=== PATIENT | male | born 1950 | race Two or more races ===

== ENCOUNTER 2023-06-22 09:52 | Inpatient (IN) | payer OTHER ==
[~2023-06-22] VITALS: Ht 177.8 cm; Wt 105.7 kg
[2023-06-22] VITALS (7 sets, daily range): BP systolic 121; BP diastolic 65; PULSE 76–98; RESP 14–23; O2SAT 92–100
[2023-06-22] MEDS ORDERED: cefTRIAXone 1GM/50ML D5W 50 ML IV ONE (11:30)
[2023-06-22] MEDS ORDERED: IPRATROPIUM BROM 0.5 MG/2.5ML INH SOL NEB ONE (11:30)
[2023-06-22] MEDS ORDERED: ALBUTEROL SULF 2.5 MG/0.5ML(0.5%) NEB SOLN NEB ONE (11:30)
[2023-06-22] MEDS ORDERED: AZITHROMYCIN 500MG/ 250ML 250 ML IV ONE (11:30)
[2023-06-22] MEDS ORDERED: methylPREDNISolone SOD SUCC 40 MG/ML VL IV ONE (11:30)
[2023-06-22 12:16] LABS: Alanine Aminotransferase 17 U/L (7-40); Albumin 4.1 g/dL (3.2-4.8); Alkaline Phosphatase 89 U/L (46-116); Anion Gap 7 (5-15); Aspartate Aminotransferase 18 U/L (13-40); BUN/Creatinine Ratio 14.4 (10.0-20.0); Blood Urea Nitrogen 16 mg/dL (9-23); Calcium 8.7 mg/dL (8.5-10.1); Carbon Dioxide 26 mmol/L (20-30); Chloride 100 mmol/L (98-107); Glucose 124 mg/dL (74-106); Potassium 3.7 mmol/L (3.5-5.1); Sodium 133 mmol/L (136-145)
[2023-06-22 12:17] LABS: Bilirubin, Total 1.1 mg/dL (0.2-1.0)
[2023-06-22 12:22] LABS: Basophils # (auto) 0 10 ^3/uL (0-0.2); Basophils % (auto) 0.2 % (0.0-2.0); Eosinophils # (auto) 0 10 ^3/uL (0-0.8); Hemoglobin 13.5 g/dL (13.5-17.5); Mean Corpuscular Hemoglobin 32.7 pg (28.0-32.0); Mean Corpuscular Hgb Conc. 34.8 g/dL (32.0-36.0); Mean Corpuscular Volume 94.2 fL (80.0-100.0); Monocytes # (auto) 1.3 10 ^3/uL (0-1.3); Monocytes % (auto) 9.5 % (0.0-12.0); Neutrophils # (auto) 11.5 10 ^3/uL (1.6-8.6); Neutrophils % (auto) 83.3 % (37.0-80.0); Nucleated Red Blood Cells % 0.1 %; Red Blood Cells 4.14 10^6/uL (4.5-5.90); Red Cell Distribution Width 12.7 % (11.8-14.3); White Blood Cell 13.8 10^3/uL (4.4-10.8)
[2023-06-22] MEDS ORDERED: ACETAMINOPHEN 500 MG TAB PO ONE (14:15)
[2023-06-22] MEDS ORDERED: MORPHINE SULFATE INJ 2 MG/ml SYRG IV PRN (14:45)
[2023-06-22] MEDS ORDERED: ONDANSETRON HCL 4 MG/2 ML VIAL IV PRN (14:45)
[2023-06-22] MEDS ORDERED: DOCUSATE SOD 100 MG CAP PO PRN (14:45)
[2023-06-22] MEDS ORDERED: TEMAZEPAM 15 MG CAP PO PRN (14:45)
[2023-06-22 15:31] LABS: Base Excess -0.8 mmol/L (-2.0-2.0)
[2023-06-22] MEDS: SODIUM CHLORIDE 0.9% 1,000 ML IV SCH (16:50)
[2023-06-22] MEDS: ALBUTEROL SULF 2.5 MG/0.5ML(0.5%) NEB SOLN NEB SCH ×2 (18:49→22:47)
[2023-06-22] MEDS: IPRATROPIUM BROM 0.5 MG/2.5ML INH SOL NEB SCH ×2 (18:49→22:47)
[2023-06-22] MEDS: methylPREDNISolone SOD SUCC 40 MG/ML VL IV SCH (23:16)
[2023-06-23] VITALS (18 sets, daily range): BP systolic 109–139; BP diastolic 59–75; PULSE 79–110; RESP 16–20; TEMP 97.4–98.4; O2SAT 91–98
[2023-06-23 00:40] LABS: Urine Bacteria NONE SEEN /hpf (None Seen); Urine Blood 1+ /uL (Negative); Urine Clarity Clear (Clear); Urine Color Yellow (Yellow); Urine Protein, UAD 1+ (Negative); Urine Specific Gravity 1.024 (1.001-1.035); Urine Urobilinogen Normal (Negative); Urine WBC 1 /hpf (0 - 3)
[2023-06-23] MEDS: SODIUM CHLORIDE 0.9% 1,000 ML IV SCH ×2 (00:45→10:58)
[2023-06-23 01:01] LABS: COVID19 ANTIGEN SOFIA FIA NEGATIVE (NEGATIVE); Rapid Influenza A Negative (Negative); Rapid Influenza B Negative (Negative)
[2023-06-23] MEDS ORDERED: LOSA100T58 PO (02:30)
[2023-06-23] MEDS ORDERED: PRIM250T29 PO (02:34)
[2023-06-23] MEDS ORDERED: GABA-1308 PO (02:34)
[2023-06-23] MEDS ORDERED: FINA5TAB4 PO (02:34)
[2023-06-23] MEDS ORDERED: ATOR40TA52 PO (02:34)
[2023-06-23] MEDS: IPRATROPIUM BROM 0.5 MG/2.5ML INH SOL NEB SCH ×6 (02:54→21:47)
[2023-06-23] MEDS: ALBUTEROL SULF 2.5 MG/0.5ML(0.5%) NEB SOLN NEB SCH ×6 (02:54→21:47)
[2023-06-23] MEDS: methylPREDNISolone SOD SUCC 40 MG/ML VL IV SCH ×2 (05:48→22:00)
[2023-06-23 07:11] LABS: Basophils # (auto) 0 10 ^3/uL (0-0.2); Basophils % (auto) 0.1 % (0.0-2.0); Eosinophils # (auto) 0 10 ^3/uL (0-0.8); Hematocrit 37.5 % (41.0-53.0); Hemoglobin 12.9 g/dL (13.5-17.5); Lymphocytes # (auto) 0.7 10 ^3/uL (0.4-5.4); Lymphocytes % (auto) 4.9 % (10.0-50.0); Mean Corpuscular Hemoglobin 33.2 pg (28.0-32.0); Mean Corpuscular Hgb Conc. 34.5 g/dL (32.0-36.0); Mean Corpuscular Volume 96.1 fL (80.0-100.0); Monocytes # (auto) 0.6 10 ^3/uL (0-1.3); Monocytes % (auto) 4.2 % (0.0-12.0); Neutrophils # (auto) 12.1 10 ^3/uL (1.6-8.6); Neutrophils % (auto) 90.8 % (37.0-80.0); Red Cell Distribution Width 12.8 % (11.8-14.3); White Blood Cell 13.3 10^3/uL (4.4-10.8)
[2023-06-23 07:35] LABS: Alanine Aminotransferase 15 U/L (7-40); Alkaline Phosphatase 98 U/L (46-116); Anion Gap 10 (5-15); Aspartate Aminotransferase 24 U/L (13-40); BUN/Creatinine Ratio 20.5 (10.0-20.0); Bilirubin, Total 0.5 mg/dL (0.2-1.0); Blood Urea Nitrogen 17 mg/dL (9-23); Calcium 8.4 mg/dL (8.7-10.4); Carbon Dioxide 21 mmol/L (20-30); Chloride 104 mmol/L (98-107); Glucose 166 mg/dL (74-106); Potassium 3.8 mmol/L (3.5-5.1); Sodium 135 mmol/L (136-145); Total Protein 6.9 g/dL (5.7-8.2)
[2023-06-23] MEDS: cefTRIAXone 1GM/50ML D5W 50 ML IV SCH (09:50)
[2023-06-23] MEDS ORDERED: PANTOPRAZOLE 40 MG/10 ML VIAL INJ IV SCH (10:00)
[2023-06-23] MEDS: AZITHROMYCIN 500MG/ 250ML 250 ML IV SCH (10:56)
[2023-06-23 11:50] LABS: INR 1.04 (0.9-1.15); Prothrombin Time 10.9 sec (9.3-11.8)
[2023-06-23] MEDS ORDERED: PROPRANOLOL HCL 20 MG TAB PO ONE (18:15)
[2023-06-23] MEDS ORDERED: LOSARTAN POTASSIUM 50 MG TAB PO ONE (18:15)
[2023-06-23] MEDS ORDERED: PRIMIDONE 50 MG TAB PO ONE (18:15)
[2023-06-23] MEDS ORDERED: FINASTERIDE 5 MG TAB PO ONE (18:15)
[2023-06-23 19:30] LABS: Free T3 2.12 pg/mL (2.3-4.2); Free T4 (Free Thyroxine) 0.99 ng/dL (0.89-1.76)
[2023-06-23] MEDS: ATORVASTATIN 20 MG TAB PO SCH (22:00)
[2023-06-24] VITALS (17 sets, daily range): BP systolic 122–138; BP diastolic 63–78; PULSE 67–101; RESP 16–20; TEMP 97.6–98.4; O2SAT 91–100
[2023-06-24] MEDS: ALBUTEROL SULF 2.5 MG/0.5ML(0.5%) NEB SOLN NEB SCH ×6 (02:09→22:15)
[2023-06-24] MEDS: IPRATROPIUM BROM 0.5 MG/2.5ML INH SOL NEB SCH ×6 (02:09→22:15)
[2023-06-24 05:39] LABS: Basophils # (auto) 0 10 ^3/uL (0-0.2); Eosinophils # (auto) 0 10 ^3/uL (0-0.8); Hematocrit 35.4 % (41.0-53.0); Lymphocytes # (auto) 0.6 10 ^3/uL (0.4-5.4); Lymphocytes % (auto) 4.7 % (10.0-50.0); Mean Corpuscular Hgb Conc. 33.8 g/dL (32.0-36.0); Mean Corpuscular Volume 94.7 fL (80.0-100.0); Neutrophils # (auto) 12.3 10 ^3/uL (1.6-8.6); Neutrophils % (auto) 88.3 % (37.0-80.0); Red Blood Cells 3.74 10^6/uL (4.5-5.90); Red Cell Distribution Width 13.1 % (11.8-14.3); White Blood Cell 13.9 10^3/uL (4.4-10.8)
[2023-06-24 06:17] LABS: Anion Gap 8 (5-15); Carbon Dioxide 22 mmol/L (20-30); Chloride 106 mmol/L (98-107); Potassium 3.9 mmol/L (3.5-5.1); Sodium 136 mmol/L (136-145)
[2023-06-24 06:18] LABS: Calcium 8.2 mg/dL (8.7-10.4)
[2023-06-24 06:23] LABS: Blood Urea Nitrogen 17 mg/dL (9-23); Glucose 204 mg/dL (74-106); Magnesium 2.5 mg/dL (1.6-2.6)
[2023-06-24] MEDS: methylPREDNISolone SOD SUCC 40 MG/ML VL IV SCH ×2 (09:54→21:11)
[2023-06-24] MEDS: cefTRIAXone 1GM/50ML D5W 50 ML IV SCH (09:54)
[2023-06-24] MEDS: AZITHROMYCIN 500MG/ 250ML 250 ML IV SCH (09:54)
[2023-06-24] MEDS: PRIMIDONE 50 MG TAB PO SCH (09:55)
[2023-06-24] MEDS: FINASTERIDE 5 MG TAB PO SCH (09:55)
[2023-06-24] MEDS: PROPRANOLOL HCL 20 MG TAB PO SCH (09:56)
[2023-06-24] MEDS: LOSARTAN POTASSIUM 50 MG TAB PO SCH (09:57)
[2023-06-24] MEDS: ALFUZOSIN 10 MG PO SCH (09:57)
[2023-06-24] MEDS ORDERED: ACETAMINOPHEN 325 MG TAB PO PRN (12:00)
[2023-06-24] MEDS: ATORVASTATIN 20 MG TAB PO SCH (21:11)
[2023-06-25] VITALS (20 sets, daily range): BP systolic 145–152; BP diastolic 75–80; PULSE 61–99; RESP 16–20; TEMP 97.7–97.9; O2SAT 92–100
[2023-06-25] MEDS: ALBUTEROL SULF 2.5 MG/0.5ML(0.5%) NEB SOLN NEB SCH ×6 (02:34→22:19)
[2023-06-25] MEDS: IPRATROPIUM BROM 0.5 MG/2.5ML INH SOL NEB SCH ×6 (02:34→22:19)
[2023-06-25] MEDS: FINASTERIDE 5 MG TAB PO SCH (09:01)
[2023-06-25] MEDS: PROPRANOLOL HCL 20 MG TAB PO SCH (09:02)
[2023-06-25] MEDS: PRIMIDONE 50 MG TAB PO SCH (09:03)
[2023-06-25] MEDS: LOSARTAN POTASSIUM 50 MG TAB PO SCH (09:03)
[2023-06-25] MEDS: methylPREDNISolone SOD SUCC 40 MG/ML VL IV SCH ×3 (09:04→22:08)
[2023-06-25] MEDS: cefTRIAXone 1GM/50ML D5W 50 ML IV SCH (09:04)
[2023-06-25] MEDS: ALFUZOSIN 10 MG PO SCH (09:09)
[2023-06-25] MEDS: AZITHROMYCIN 500MG/ 250ML 250 ML IV SCH (10:28)
[2023-06-25 11:01] LABS: Alanine Aminotransferase 24 U/L (7-40); Albumin 3.8 g/dL (3.2-4.8); Alkaline Phosphatase 88 U/L (46-116); Anion Gap 7 (5-15); Aspartate Aminotransferase 22 U/L (13-40); BUN/Creatinine Ratio 17.3 (10.0-20.0); Bilirubin, Total 0.4 mg/dL (0.2-1.0); Blood Urea Nitrogen 13 mg/dL (9-23); Calcium 8.2 mg/dL (8.5-10.1); Carbon Dioxide 23 mmol/L (20-30); Chloride 105 mmol/L (98-107); Cholesterol 91 mg/dL (< 200); Glucose 245 mg/dL (74-106); HDL Cholesterol 20 mg/dL (40-59); LDL Cholesterol 59 mg/dL (< 100); Potassium 3.8 mmol/L (3.5-5.1); Sodium 135 mmol/L (136-145); Total Protein 6.4 g/dL (5.7-8.2); Triglycerides 102 mg/dL (< 150)
[2023-06-25 11:07] LABS: Basophils # (auto) 0 10 ^3/uL (0-0.2); Basophils % (auto) 0.1 % (0.0-2.0); Eosinophils # (auto) 0 10 ^3/uL (0-0.8); Hematocrit 35.2 % (41.0-53.0); Hemoglobin 12.1 g/dL (13.5-17.5); Lymphocytes # (auto) 0.7 10 ^3/uL (0.4-5.4); Lymphocytes % (auto) 5.9 % (10.0-50.0); Mean Corpuscular Hgb Conc. 34.4 g/dL (32.0-36.0); Mean Corpuscular Volume 95.9 fL (80.0-100.0); Monocytes # (auto) 1.2 10 ^3/uL (0-1.3); Monocytes % (auto) 10.3 % (0.0-12.0); Neutrophils % (auto) 83.7 % (37.0-80.0); Red Blood Cells 3.67 10^6/uL (4.5-5.90); Red Cell Distribution Width 13.2 % (11.8-14.3)
[2023-06-25 11:11] LABS: Lactic Acid w/Reflex 2.5 mmol/L (0.4-2.0)
[2023-06-25] MEDS: ATORVASTATIN 20 MG TAB PO SCH (22:08)
[2023-06-26] VITALS (12 sets, daily range): BP systolic 126–157; BP diastolic 78–92; PULSE 65–75; RESP 14–20; TEMP 36.7; O2SAT 91–99
[2023-06-26] MEDS: IPRATROPIUM BROM 0.5 MG/2.5ML INH SOL NEB SCH ×4 (01:16→14:18)
[2023-06-26] MEDS: ALBUTEROL SULF 2.5 MG/0.5ML(0.5%) NEB SOLN NEB SCH ×4 (01:16→14:18)
[2023-06-26 06:12] LABS: Hemoglobin 13.1 g/dL (13.5-17.5); Mean Corpuscular Hemoglobin 33.2 pg (28.0-32.0); Mean Corpuscular Hgb Conc. 34.5 g/dL (32.0-36.0); Mean Corpuscular Volume 96.3 fL (80.0-100.0); Red Blood Cells 3.94 10^6/uL (4.5-5.90); White Blood Cell 9.7 10^3/uL (4.4-10.8)
[2023-06-26 06:19] LABS: Anion Gap 6 (5-15); Carbon Dioxide 27 mmol/L (20-30); Chloride 105 mmol/L (98-107); Sodium 138 mmol/L (136-145)
[2023-06-26 06:21] LABS: Calcium 8.8 mg/dL (8.5-10.1)
[2023-06-26 06:25] LABS: BUN/Creatinine Ratio 16.9 (10.0-20.0); Blood Urea Nitrogen 14 mg/dL (9-23)
[2023-06-26 06:30] LABS: Band Neutrophils % (manual) 0; Basophils % (manual) 0 (0.0-2.0); Blast Cells 0; Eosinophils % (manual) 0 (0-7); Metamyelocytes % 0; Myelocytes % 0; Promyelocytes % 0; Reactive Lymphocytes 0
[2023-06-26 06:33] LABS: Glucose 113 mg/dL (74-106)
[2023-06-26] MEDS: AZITHROMYCIN 500MG/ 250ML 250 ML IV SCH (08:29)
[2023-06-26] MEDS: methylPREDNISolone SOD SUCC 40 MG/ML VL IV SCH (08:29)
[2023-06-26] MEDS: cefTRIAXone 1GM/50ML D5W 50 ML IV SCH (08:29)
[2023-06-26] MEDS: FINASTERIDE 5 MG TAB PO SCH (08:30)
[2023-06-26] MEDS: PROPRANOLOL HCL 20 MG TAB PO SCH (08:30)
[2023-06-26] MEDS: PRIMIDONE 50 MG TAB PO SCH (08:30)
[2023-06-26] MEDS: LOSARTAN POTASSIUM 50 MG TAB PO SCH (08:31)
[2023-06-26] MEDS: ALFUZOSIN 10 MG PO SCH (08:31)
[2023-06-26 08:49] LABS: Lymphocytes % (manual) 11 (10.0-50.0); Monocytes % (manual) 10 (0-12)
[2023-06-26 08:50] LABS: Platelet Estimate Adequate; RBC Morphology Normal
[2023-06-26 09:15] LABS: Hepatitis B Surface Antigen Negative (Negative)
[2023-06-26 09:36] LABS: Hepatitis C Antibody Negative (Negative)
[2023-06-26] MEDS ORDERED: LEVO750T40 PO (10:25)
== END 2023-06-26 18:10 | disposition home or self-care (01) | DRG 177 ==
LOC: ER 11:07 → TELE 14:50 → TELE-WESTW 23:45
PROVIDERS: ADMIT Internal Medicine Pulmonary Disease; ATTEND Student in an Organized Health Care Education/Training Program
DX: J15.69 Pneumonia due to other Gram-negative bacteria (principal); J96.01 Acute respiratory failure with hypoxia; J84.9 Interstitial pulmonary disease, unspecified; E87.1 Hypo-osmolality and hyponatremia; J44.1 Chronic obstructive pulmonary disease with (acute) exacerbation; J44.0 Chronic obstructive pulmonary disease with (acute) lower respiratory infection; J15.9 Unspecified bacterial pneumonia; Z20.822 Contact with and (suspected) exposure to COVID-19; I10 Essential (primary) hypertension; N40.0 Benign prostatic hyperplasia without lower urinary tract symptoms; E78.5 Hyperlipidemia, unspecified; E66.9 Obesity, unspecified; G25.0 Essential tremor; Z87.891 Personal history of nicotine dependence; Z68.33 Body mass index [BMI] 33.0-33.9, adult
CPT/HCPCS: 36415; 36600; 71045; 71250; 80048; 80053; 80061; 81001; 82805; 83036; 83605; 83735; 83880; 84439; 84443; 84481; 84484; 85007; 85025; 85027; 85610; 85730; 86803; 87040; 87070; 87081; 87205; 87340; 87426; 87804; 93005; 93306; 94640; 96365; 97110; 97116; 97163; 97530; 99291; C9113; G0378; J0696